=== PATIENT | female | born 1960 | race Caucasian/White ===

== ENCOUNTER → 2023-05-09 07:15 | Outpatient (REF) | payer BC, SELFPAY ==
[2023-05-09 07:48] LABS: Ionized Calcium 1.11 mMOL/L (1.15-1.33)
[2023-05-09 08:42] LABS: ALT (SGPT) 24 U/L (0-35); AST (SGOT) 28 U/L (14-36); Albumin 3.9 g/dl (3.5-5.0); Alkaline Phosphatase 83 U/L (38-126); Blood Urea Nitrogen 17 mg/dl (7-17); Calcium 8.9 mg/dl (8.4-10.2); Carbon Dioxide 25 mmol/L (22-30); Chloride 104 mmol/L (98-107); Glucose 95 mg/dl (70-99); Potassium 4.5 mmol/L (3.5-5.1); Sodium 139 mmol/L (135-145); Total Bilirubin 0.7 mg/dl (0.2-1.3); Total Protein 7.1 g/dl (6.3-8.2); eGFR > 60.00
[2023-05-09 09:07] LABS: Free T3 4.28 pg/ml (2.77-5.27); Free T4 1.64 ng/dl (0.78-2.19); Vitamin D, 25-OH*** 37.4 ng/mL (30-80)
[2023-05-09 09:20] LABS: TSH 0.24 uIU/ml (0.47-4.68)
[2023-05-09 11:09] LABS: Intact PTH 48.8 pg/ml (13.6-85.8)
[2023-05-09 11:10] LABS: Glycohemoglobin (HgbA1c) 5.7 % (4.0-5.6)
== END ==
LOC: REG 07:15
PROVIDERS: ATTENDING PHYSICIAN Surgery; FAMILY PHYSICIAN Family Medicine; OTHER PHYSICIAN Nurse Practitioner Family
DX: E55.9 Vitamin D deficiency, unspecified (principal); E21.0 Primary hyperparathyroidism; E06.3 Autoimmune thyroiditis
CPT/HCPCS: 36415; 80053; 82306; 82330; 83036; 83970; 84439; 84443; 84481

== ENCOUNTER → 2023-05-16 07:07 | Outpatient (REF) | payer BC, SELFPAY ==
[2023-05-16 11:28] LABS: 24 Hour Urine Creatinine 1.265 gm/day (0.8-1.8); 24 Hour Urine Total Volume 2500 ml; Urine Calcium 9.2 mg/dl
== END ==
LOC: REG 07:07
PROVIDERS: ATTENDING PHYSICIAN Nurse Practitioner Family; FAMILY PHYSICIAN Family Medicine
DX: E55.9 Vitamin D deficiency, unspecified (principal)
CPT/HCPCS: 81050; 82340; 82570

== ENCOUNTER → 2023-12-18 06:36 | Outpatient (REF) | payer BC, SELFPAY ==
[2023-12-18 07:15] LABS: % Basophils 0.8 % (0-2); % Eosinophils 2.3 % (0-6); % Immature Granulocytes 0.2 % (0-0.5); % Lymphocytes 29.2 % (20.5-51.1); % Neutrophils 58.5 % (42.2-75.2); Absolute Basophils 0.1 10^3/uL (0-0.2); Absolute Eosinophils 0.1 10^3/uL (0-0.7); Absolute Lymphocytes 1.8 10^3/uL (1.2-3.4); Absolute Monocytes 0.5 10^3/uL (0.1-0.6); Absolute Neutrophils 3.5 10^3/uL (1.4-6.5); Hematocrit 40.8 % (37.0-47.0); Mean Corp Hgb Conc. 34.3 g/dL (33.0-37.0); Mean Corpuscular Hgb 30.1 pg (27.0-31.0); Mean Corpuscular Volume 87.7 fL (81.0-99.0); Mean Platelet Volume 8.8 fL (7.4-10.4); Nucleated Red Blood Cells % 0 %; Platelet Count 237 10^3/uL (130-400); Red Blood Cell Count 4.65 10^6/uL (4.20-5.40); Red Cell Dist. Width 13.5 % (11.5-14.5)
[2023-12-18 07:19] LABS: Ionized Calcium 1.14 mMOL/L (1.15-1.33)
[2023-12-18 07:35] LABS: Urine Albumin Negative (Neg - Trace); Urine Bilirubin Negative (Negative); Urine Character Clear (Clear); Urine Color Yellow; Urine Glucose Negative (Negative); Urine Ketone Negative (Negative); Urine Leukocyte 2+ (Negative); Urine Nitrite Negative (Negative); Urine Occult Blood Negative (Negative); Urine Specific Gravity 1.015 (<1.030); Urine Urobilinogen Negative (Neg - 1+); Urine pH 6.5 (5.0-9.0)
[2023-12-18 07:44] LABS: ALT (SGPT) 24 U/L (0-35); AST (SGOT) 25 U/L (14-36); Albumin 4.2 g/dl (3.5-5.0); Alkaline Phosphatase 75 U/L (38-126); Blood Urea Nitrogen 20 mg/dl (7-17); Carbon Dioxide 27 mmol/L (22-30); Chloride 105 mmol/L (98-107); Glucose 89 mg/dl (70-99); HDL Cholesterol 70 mg/dl; LDL Cholesterol, Calculated 165 mg/dl; Potassium 4.3 mmol/L (3.5-5.1); Sodium 144 mmol/L (135-145); Total Bilirubin 0.6 mg/dl (0.2-1.3); Total Cholesterol 254 mg/dl (50-199); Total Protein 6.8 g/dl (6.3-8.2); Triglyceride 99 mg/dl (10-149); Very Low Density Lipoprotein 19 mg/dl (0-30); eGFR > 60.00
[2023-12-18 07:59] LABS: Vitamin D, 25-OH*** 31.4 ng/mL (30-80)
[2023-12-18 08:06] LABS: Free T3 3.03 pg/ml (2.77-5.27)
[2023-12-18 08:12] LABS: TSH 2.21 uIU/ml (0.47-4.68)
[2023-12-18 08:24] LABS: Urine Squamous Cell >30 /LPF (Few)
[2023-12-18 08:26] LABS: Urine Bacteria Few (Negative); Urine Red Blood Cell None Seen /HPF (0-2)
[2023-12-18 08:28] LABS: Urine Protein < 5 mg/dl
[2023-12-18 08:36] LABS: Microalbumin, Random Urine <0.6 mg/dl (0.6-1.7)
[2023-12-18 08:51] LABS: 24 Hour Urine Total Volume 2500 ml
[2023-12-18 09:19] LABS: Urine Calcium 10.6 mg/dl
[2023-12-18 09:20] LABS: 24 Hour Urine Creatinine 1.452 gm/day (0.8-1.8)
[2023-12-18 09:54] LABS: Glycohemoglobin (HgbA1c) 5.5 % (4.0-5.6)
[2023-12-19 11:26] LABS: Intact PTH 50.5 pg/ml (13.6-85.8)
[2023-12-19 23:28] LABS: Total T3 (Sendout) 68 ng/dL (80-200)
== END ==
LOC: REG 06:36
PROVIDERS: ATTENDING PHYSICIAN Student in an Organized Health Care Education/Training Program; FAMILY PHYSICIAN Family Medicine; REFERRING PHYSICIAN Physician Assistant
DX: R39.9 Unspecified symptoms and signs involving the genitourinary system (principal); E11.65 Type 2 diabetes mellitus with hyperglycemia; E21.0 Primary hyperparathyroidism; E06.3 Autoimmune thyroiditis; E83.52 Hypercalcemia; E55.9 Vitamin D deficiency, unspecified
CPT/HCPCS: 36415; 80053; 80061; 81003; 81015; 81050; 82043; 82306; 82330; 82340; 82570; 83036; 83970; 84156; 84439; 84443; 84480; 84481; 85025; 87086